=== PATIENT | female | born 1985 | race Two or more races ===

== ENCOUNTER 2018-05-29 04:15 | Emergency (ER) | payer MEDICAID ==
[~2018-05-29] VITALS: Ht 177.8 cm; Wt 72.6 kg
[2018-05-29 05:34] VITALS: BP 127/91
== END 2018-05-29 06:06 | disposition home or self-care (01) ==
LOC: ER 04:17
DX: M62.838 Other muscle spasm (principal); M54.2 Cervicalgia; R21 Rash and other nonspecific skin eruption
CPT/HCPCS: 70450; 72125; 81025